=== PATIENT | male | born 1995 | race Caucasian/White ===

== ENCOUNTER 2020-07-11 14:58 | Outpatient (CLI) | payer OTHER ==
[2020-07-11 15:49] VITALS: BP 104/66
--- NOTE | 2020-07-11 15:49 | SLEEP CARE CONSULTATION ---
Information from patient questionnaire entered by Chivo Villalta. I have reviewed and concur with the information entered by Chivo Villalta. This document represents the service I personally performed and the decisions made by me, Deanna Mead ARNP. History of Present Illness Service Date and Time: 07/11/2020 145 Reason for Visit: New patient Chief Complaint: reports: Unrefreshed sleep, Snoring, Excessive daytime sleepiness, Fatigue, Frequent awakenings at night, Other (Can't sleep on back). denies: Observed pauses in breathing Date of Onset: About 5 years Usual bedtime: Midnight to 9 AM Snores at night: Yes Observed to quit breathing while asleep: Yes Sleeps alone due to snoring: No Number of times waking at night: 2 times Reasons for waking at night: reports: Snoring, Gasping for air, Bathroom. denies: Choking Toss, Turn, or Twitch while sleeping: Yes Recalls having dreams: No Usually gets out of bed at: 10 AM Feels refreshed in the morning: No Morning headache: No Sleepy or fatigued during the day: Yes Ever fallen asleep while driving: No Takes day naps: No Dreams during day naps: Yes Prior sleep studies: No Additional HPI information: I had the pleasure of seeing MODE LOVE today regarding the possibility of him having a sleep disorder. His current complaints are unrefreshed sleep, snoring and can't sleep on his back. He states he is restless every day. He gets up not feeling he got "8 hours" of sleep. He has tried to restrict alcohol and nicotine before bed. He also restricts electronics before bed. But he has not noticed that these measures have improved his overall restfulness. He gasps for air at times in his sleep. 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 He states his father has insomnia and snores. His brother has narcolepsy and is on medication. - Parasomnia Symptoms Ever been unable to move upon waking from sleep: Yes Walks in sleep: No Talks in sleep: Yes Ever acted out dreams in sleep: No (not sure) Ever felt weak in the knees when startled or emotional: No Bothered by creepy, crawly, restless sensations in legs: Yes (just at night when trying to go to sleep) Problems with memory or concentration: Yes (both) Subjective Initial Fowler Sleepiness Scale score: 16 (in 2020) Past Medical History Past Medical History: denies: Hypertension, Diabetes, Arrythmia, Anxiety, Depression, Mood disorder, GERD Social History The patient's occupation is active in the [employer]. Patient is Single and lives in [place]. Have you smoked in the past 12 months: No Cigarettes per day (20/pack): 5 Years of smokin Quit date: 2017 Smoking Pack Years: 1.0 Alcohol use: Yes Alcohol amount and frequency: 4 once a week Caffeine use: Yes Caffeine amount and frequency: One 8 oz drink a day Family History Family history of sleep disordered breathing: Yes ( Father has insomnia, brother has narcolepsy) Family Hx Sleep Apnea: Father: Snoring Allergies and Home Medications Drug allergies reviewed: Yes (NKDA) Home medication list reviewed: Yes Allergy and home medication list: Fish oil Multivitamin Review of Systems Weight gain over past 5 years: 10 Cardiovascular: denies: high blood pressure Gastrointestinal: reports: diarrhea Urinary: reports: frequency Ear/Nose/Throat: reports: nasal congestion, sinus problems, dry mouth/throat (in the mornings), wisdom teeth removed. denies: tonsillectomy Musculoskeletal: reports: neck pain Immunologic: reports: itching, allergies to food or environment (seasonal allergies) Physical Exam Blood Pressure: 104/66 Cuff size: wrist Heart Rate: 76 O2 Saturation: 98 Height: 5 ft 9 in Weight: 159 lb Body Mass Index: 23.4 BMI Classification: Healthy weight Neck circumference: 15.5 (inches) Nostrils: patent to airflow Turbinates: normal Mouth and throat: narrow oropharynx Soft palate: normal Uvula: long Uvula visualization: 50% Mallampati Class II Tongue: normal in size Tonsils: 2+ Chin and jaw: normal size and position Neck: normal w/o lymphadenopathy or thyromegaly Heart: regular rate and rhythm Lungs: clear bilaterally Impression and Plan 1. Suspected Obstructive Sleep Apnea-Hypopnea Syndrome, as suggested by a history of loud and irregular snoring, gasping or choking in sleep, frequent awakening during the night, unrefreshed sleep, cognitive impairment, and excessive daytime sleepiness. Narrow oropharynx and obesity are common predisposing factors for obstructive sleep apnea-hypopnea syndrome. I recommend proceeding to polysomnography to confirm the diagnosis and to assess severity. If the patient has significant sleep disordered breathing, a manual CPAP titration study will also be performed to find the optimal treatment pressure. I informed the patient of what the sleep studies involve and after some discussion, obtained agreement to proceed. The pathophysiology of obstructive sleep apnea-hypopnea syndrome was discussed with the patient and health risks of cardiovascular and cerebrovascular disease if not treated. AAS brochure for obstructive sleep apnea-hypopnea syndrome given and reviewed. 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 Patient agreed to plan. * Schedule polysomnography +- manual CPAP titration study and return in 1-2 weeks after the study to discuss result and initiate therapy. * Avoid long distance driving or driving when feeling sleepy. * Avoid alcohol, sedative and muscle relaxant around bedtime. * Review instructions provided by trained office staff on how to prepare for the sleep study. * Return for follow-up after sleep study completed. Visit Type: In Office Time Spent with Patient (minutes): 30 Provider Statement: I spent 100% of the Face to Face Visit with the patient with greater than 50% spent counseling the patient and coordination of care.
== END 2020-07-11 14:59 | disposition home or self-care (01) ==
LOC: SC 14:58
PROVIDERS: ATTEND Nurse Practitioner Family
DX: R06.83 Snoring (principal); G47.8 Other sleep disorders; R41.89 Other symptoms and signs involving cognitive functions and awareness; G47.10 Hypersomnia, unspecified
CPT/HCPCS: 99203; 99212

== ENCOUNTER 2020-11-25 16:52 | Outpatient (CLI) | payer OTHER | END 2020-11-25 16:53 | disposition home or self-care (01) | LOC: COV 16:52 | PROVIDERS: ATTEND Nurse Practitioner Family | DX: Z01.812 Encounter for preprocedural laboratory examination (principal); Z20.822 Contact with and (suspected) exposure to COVID-19 ==